=== PATIENT | female | born 1985 | race Caucasian/White ===

== ENCOUNTER 2019-02-09 08:33 | Inpatient (IN) | payer MEDICAID, OTHER ==
[2019-02-09 08:48] VITALS: BMI 32.1
[2019-02-09] MEDS ORDERED: ceFAZolin 2 GM in Sodium Chloride 0.9% 100 ML IVPB ONE (08:48)
[2019-02-09] MEDS ORDERED: Lactated Ringer's 1,000 ML IV ONE (08:48)
[2019-02-09] MEDS ORDERED: Lactated Ringer's 1,000 ML IV SCH (09:00)
[2019-02-09] MEDS ORDERED: Oxytocin 30 UNIT in NS 500 ml 30 UNITS/500 ML BAG IV ONE (09:13)
[2019-02-09] MEDS ORDERED: OXYTOCIN/0.9 % NS 20 UNIT/1,000 ML BAG IV SCH (09:15)
[2019-02-09 09:37] VITALS: O2SAT 100
[2019-02-09 09:58] LABS: BASO # 0.1 K/uL (0.0-0.2); BASO % 0.6 % (0.0-2.0); EOS # 0.1 K/uL (0.0-0.7); EOS % 1.1 % (0.0-4.0); HEMOGLOBIN 9.7 g/dL (12.0-16.0); LYMPH # 1.5 K/uL (1.0-4.3); MEAN CELL VOLUME 72.9 fl (81.0-99.0); MEAN CORPUSCULAR HEMOGLOBIN 22.7 pg (27.0-31.0); MEAN CORPUSCULAR HGB CONC 31.2 g/dL (33.0-37.0); MEAN PLATELET VOLUME 8.8 fl (7.2-11.7); MONO # 0.6 K/uL (0.0-0.8); NEUT # 7.8 K/uL (1.8-7.0); NEUT % 77.3 % (50.0-75.0); RBC 4.27 Mil/uL (3.80-5.20); RED CELL DISTRIBUTION WIDTH 15.2 % (11.5-14.5); WHITE BLOOD COUNT 10.1 K/uL (4.8-10.8)
[2019-02-09] MEDS ORDERED: Morphine 5 mg/10 ml preservative-free Inj(Duramorph) ONE (12:04)
--- NOTE | 2019-02-09 12:39 | OBHP ---
Datetime: 02/09/2019 09:45 IP Adm Impression: Term, intrauterine IP Chief Complaint Other: Scheduled IP Admit Plan: Admit to unit; Initiate Section protocol Admit Comment, IP Provider: HPI: Arlette is a 34 year old who presents today for a scheduled r epeat with BTL. SIMON 02/16/19 by LMP/first tri US PMH Denies PSH x2 Medications PNV Allergies NKDA Social No tobacco, alcohol or drug use during the PHYSICAL EXAM Vitals reviewed labs: HIV/RPR neg, Rubella immune, first tri screen negative, Hep B neg, GC/Chlamydia neg , GBS unknown ASSESSMENT/PLAN: 34 year old at 39.0 weeks here for repeat C- section and BTL - Reviewed risks/benefits/alternatives to repeat , consent obtained - Additional consent obtained for tubal ligation, including permanence of the procedure, patient w ould still like to proceed - Initiate protocol Plan discussed with attending, Dr. eLvi Alaniz MD OB Fellow Patient was seen with the fellow agree with the note Abdomen - PN: Normal Lungs - PN: Normal Heart - PN: Normal Neurologic - PN: Normal HEENT - PN: Normal General - PN: Normal Presentation-Admit: Vertex IP Fetus A Comments: Reactive NST FHR - Baseline A Provider: 120 Gestation - Est Wks by US: 39.0 Vital Signs Provider: Reviewed; Within Normal Limits NICHD Variability Prov Fetus A: Moderate 6-25bpm NICHD Accel Fetus A IP Provider: [id number] NICHD Decel Fetus A IP Provider: None
--- NOTE | 2019-02-09 12:39 | OBDS ---
DELIVERY PERSONNEL Delivery Doctor: Chelsea Sims MD Scrub Nurse: Ella Salter Floor Sanding Machine Operator: Aida Muniz RN Anesthesiologist: Dr Condon MATERNAL INFORMATION Delivery Anesthesia: Spinal Medications in Delivery: Ancef Estimated Blood Loss (ml): 800 Placenta Cultured: No Maternal Complications: None Provider Comments: See operative report LABOR SUMMARY EDC: 02/16/2019 00:00 No. Babies in Womb: 1 STAGES OF LABOR Stage 3 hrs: 0 Stage 3 min: 1 BABY A INFORMATION Infant Delivery Date/Time: 02/09/2019 11:43 Method of Delivery: Born in Route : No : N/A Forceps: N/A Vacuum Extraction: N/A Shoulder Dystocia : No SHOULDER DYSTOCIA BABY A Infant Delivery Date/Time: 02/09/2019 11:43 PRESENTATION/POSITION BABY A Presentation: Cephalic PLACENTA INFORMATION BABY A Placenta Delivery Time : 02/09/2019 11:44 Placenta Method of Delivery: Manual Removal Placenta Status: Delivered INFORMATION BABY A Gestational Age at Delivery: 39.0 Gestational Status: Term Outcome : Liveborn Condition : Stable Infant Sex: Female WEIGHT/LENGTH BABY A Birthweight (gms): 3370 Weight (lb): 7 Infant Weight (oz): 7 CORD INFORMATION BABY A No. Cord Vessels: 3 Nuchal Cord : N/A Cord Blood Taken: Yes
[2019-02-09] MEDS ORDERED: DiphenhydrAMINE 50 mg/ml Inj IVP PRN ×2 (13:03→15:54)
[2019-02-09] MEDS ORDERED: Oxycodone/Acetaminophen 5/325 mg Tab PO PRN ×4 (14:08→15:54)
[2019-02-09] MEDS: Lactated Ringer's 1,000 ML IV SCH ×2 (17:18→23:06)
[2019-02-10] MEDS: Lactated Ringer's 1,000 ML IV SCH (06:31)
[2019-02-10 06:39] LABS: MEAN CELL VOLUME 71.2 fl (81.0-99.0); MEAN CORPUSCULAR HEMOGLOBIN 22.7 pg (27.0-31.0); MEAN CORPUSCULAR HGB CONC 31.8 g/dL (33.0-37.0); RBC 3.98 Mil/uL (3.80-5.20); RED CELL DISTRIBUTION WIDTH 15.1 % (11.5-14.5); WHITE BLOOD COUNT 11.1 K/uL (4.8-10.8)
--- NOTE | 2019-02-10 08:25 | OP ---
PROCEDURE DATE: 02/09/19 PREOPERATIVE DIAGNOSES: History of previous operative delivery. The patient declined trial of labor. Repeat section at 39 weeks. POSTOPERATIVE DIAGNOSES: History of previous operative delivery. The patient declined trial of labor. Repeat section at 39 weeks. OPERATION PERFORMED: Primary low flap transverse section via Pfannenstiel skin incision with bilateral tubal ligation. SURGEON: Cleveland Sims MD. ER RN: Dr. Amrita Alaniz. She was helpful in creating exposure, obtaining hemostasis, delivery of the infant, and closure of the patient. The procedure would not have been possible without her assistance. IV FLUID INTAKE: The patient received 1400 mL of D5 LR intraoperatively. ESTIMATED BLOOD LOSS: 800 mL. URINE OUTPUT: Approximately 150 mL of clear urine. OPERATIVE FINDINGS: Baby girl, vertex presentation, weighing 3370 g. Apgars 9 and 9. Normal uterus, tubes, and ovaries were identified. DESCRIPTION OF PROCEDURE: After informed consent was obtained, the patient was taken to the operating room where she was given spinal anesthesia. She was then prepped and draped in a normal sterile fashion with a leftward tilt. A Pfannenstiel skin incision was then made with the scalpel, carried down to the underlying layer of fascia. The fascia was nicked in the midline. The fascial incision was then extended laterally with the curved Khan scissors. The superior aspect of the fascial incision was then grasped with Jeff clamps, elevated up, and the rectus muscles were dissected off using both sharp and blunt dissection. Attention was then turned to the inferior aspect of the fascial incision, which in a similar fashion was grasped with Jeff clamps, elevated up, and the rectus muscles were dissected off using both sharp and blunt dissections. The rectus muscles were then in the midline. The peritoneum identified and entered sharply with the Metzenbaum scissors. The peritoneal incision was then extended superiorly and inferiorly with good visualization of the bladder. The bladder blade was inserted. The vesicouterine peritoneum identified and entered sharply with the Metzenbaum scissors. The incision was then extended laterally. The bladder flap was created digitally. The bladder blade was then readjusted. A low-transverse incision was then made with the scalpel. The incision was then extended laterally. The 's head was delivered atraumatically. The nose and mouth were suctioned with DeLee suction trap. The cord was clamped and cut. The was handed off to awaiting pediatricians. The placenta was then removed manually. The uterus exteriorized and cleared of all clots and debris. The uterine incision was then repaired with 0 Vicryl in a running locked fashion. Second layer of the same suture was used to obtain excellent hemostasis. Attention was then turned to the right fallopian tube. It was grasped with Sam, elevated upward and a knuckle was suture ligated using 2-0 Chromic. A free tie was then placed around the base of the knuckle. The knuckle was then excised with Metzenbaum scissors, and the specimen was sent to pathology for evaluation. Similar procedure was performed on the left. The uterus was then returned to the abdomen. The gutters were cleared of all clots and debris. The tubal stumps were examined and noted to be hemostatic. The uterine incision was hemostatic. The muscle was then reapproximated with 0 Vicryl in an interrupted fashion. The fascia was closed with 0 Vicryl in a running fashion. The skin was closed with 3-0 on a Hubert needle. All sponge, lap, needle, and instrument counts were correct x2, and the patient was taken to the recovery room in awake and stable condition. Cleveland Sims MD
[2019-02-10] MEDS ORDERED: Multivitamin With Minerals Tab PO SCH (09:00)
[2019-02-10] MEDS: Multivitamin With Minerals Tab PO SCH (09:29)
--- NOTE | 2019-02-11 08:31 | OBPPN ---
Datetime: 02/10/2019 08:25 PP Pain Prov: Within normal limits PP Nausea Prov: Denies PP Flatus Prov: Yes PP BM Prov: Yes PP Breasts Prov: Normal PP Heart Prov: Normal PP Lungs Prov: Normal PP Abdomen/Uterus Prov: Normal PP Lochia Prov: Normal PP Vulva/Perineum Prov: Normal PP CVA Tenderness Prov: Normal PP Extremities Prov: Normal PP C/S Incision Prov: Normal PP Progress Prov: Normal PP Comments Phys Exam Prov: Abdomen soft, nontender, nondistended Uterus firm, below umbilicus No deep calf tenderness bilaterally Incision clean, dry, intact PP Impression Prov: Normal progression PP Plan Prov: Continue present management PP Progress Note Prov: Postop day #2 status post , patient recovering well Continue current management, anticipate discharge home tomorrow IP PP Procedures: None Vital Signs Provider PP: Reviewed; Within Normal Limits
[2019-02-11] MEDS: Multivitamin With Minerals Tab PO SCH (08:34)
[2019-02-12] MEDS: Multivitamin With Minerals Tab PO SCH (08:18)
--- NOTE | 2019-02-12 12:10 | OBPPN ---
Datetime: 02/11/2019 12:02 PP Pain Prov: Within normal limits PP Nausea Prov: Denies PP Flatus Prov: Yes PP Breasts Prov: Normal PP Heart Prov: Normal PP Lungs Prov: Normal PP Abdomen/Uterus Prov: Normal PP Lochia Prov: Normal PP Vulva/Perineum Prov: Normal PP CVA Tenderness Prov: Normal PP Extremities Prov: Normal PP Progress Prov: Normal PP Comments Phys Exam Prov: Abd: Soft, NT, BS- present UT- Firm, fundus - below umbilicus Incision: Clean and dry PP Impression Prov: Normal progression PP Plan Prov: Continue present management PP Progress Note Prov: S/P Repeat Section, Clinically Stable Plan: Continue care. Vital Signs Provider PP: Reviewed
--- NOTE | 2019-02-12 12:10 | OBDCSUM ---
Datetime: 02/12/2019 11:50 Discharged to, Provider: Home Follow up at, Provider: DR PHILIP Lindsay Instr Activity: May Shower Disch Instr Diet: Regular Discharge Instructions, Provider: Routine instructions given Discharge Diagnosis, Provider: Term Delivered Discharge Time: 02/12/2019 13:00 Follow up in weeks, Provider: 1 week Disch Referrals: None Contraception discussed, Prov: Yes Disch Activity Restrictions: No lifting; No driving; Minimize stair-climbing; No sexual activity; No thing in vagina - [place], tampons, douche Discharge Comment, Provider: S/P uncomplicated repeat Delivery, Clinically Stable Discharge Diagnosis Prov Other: S/P uncomplicated repeat Delivery, Clinically Stable
[2019-02-12 21:54] VITALS: BP 138/73; PULSE 79; RESP 20; TEMP 98.4
== END 2019-02-12 13:35 | disposition home or self-care (01) | DRG 371 ==
LOC: H.EROB2 08:33 → H.L&D 08:48 → H.OB/GYN 15:00
PROVIDERS: ADMIT Obstetrics & Gynecology Gynecology; ATTEND Obstetrics & Gynecology Gynecology
PROC: 10D00Z1 Extraction of Products of Conception, Low, Open Approach (ICD-10-PCS; principal; 2019-02-09)
PROC: 0UB70ZZ Excision of Bilateral Fallopian Tubes, Open Approach (ICD-10-PCS; 2019-02-09)
PROC: 4A1HXCZ Monitoring of Products of Conception, Cardiac Rate, External Approach (ICD-10-PCS; 2019-02-09)
DX: O34.211 Maternal care for low transverse scar from previous cesarean delivery (principal); N85.8 Other specified noninflammatory disorders of uterus; Z37.0 Single live birth; Z3A.39 39 weeks gestation of pregnancy; Z30.2 Encounter for sterilization